=== PATIENT | male | born 1980 | race Caucasian/White ===

== ENCOUNTER 2021-08-18 13:46 | Outpatient (REF) | payer MEDICARE, MEDICAID, SELFPAY | END 2021-08-18 13:47 | disposition home or self-care (01) | LOC: HO.LAB 13:46 | PROVIDERS: PCP Physician Assistant Medical; Visit Provider Psychiatry & Neurology Neurology | DX: G71.00 Muscular dystrophy, unspecified (principal) | CPT/HCPCS: 36415; 82550 ==

== ENCOUNTER → 2021-09-07 12:44 | Outpatient (REF) | payer MEDICARE, MEDICAID, SELFPAY ==
--- NOTE | 2021-09-07 12:50 | CA_ITS ---
Transthoracic Echocardiogram Patient (Last, First, Middle): Uri Raymond J Gender: Male Date of : 1980 Age: 40 Procedure Date: 09/07/2021 Procedure Type: Transthoracic Echocardiogram Location: OP Height: 172.72 cm Weight: 58.97 kg BSA: 1.70 m2 Heart Rate: 79 bpm BP: 138 / 80 mmHg Recycler: MEET Referring MD: Ricardo Ryan MD Shift Lab Technician: Chris Loredo MD Symptoms: MUSCULAR DYSTOPHY, UNSPECIFIED. Study Quality: Adequate ECG Rhythm: Sinus Conclusions: - 1. Normal LV systolic and diastolic function 2. Mild mitral regurgitation 3. No gross pericardial effusion Findings Left Ventricle Normal left ventricular size, thickness, and systolic function. The visually estimated ejection fraction is between 55-60%. Spectral Doppler is indicative of a normal filling pattern. Right Ventricle Normal right ventricular cavity size and systolic function. Atria Both atria are normal in size. Interatrial shunt cannot be excluded. Aortic Valve Normal aortic valve structure and function. There is no aortic valve stenosis. There is no aortic valve regurgitation. Mitral Valve Normal mitral valve structure and function. There is mild mitral valve regurgitation. There is no mitral valve stenosis. Pulmonic Valve The pulmonic valve was not well visualized. Tricuspid Valve Likely normal tricuspid valve structure and function. Tricuspid regurgitation envelope is inadequate for calculation of right ventricular systolic pressure. Great Vessels All visible segments of the aorta are normal in size. The pulmonary artery was not well visualized. Venous The inferior vena cava was not well visualized. Pericardium/Pleural There is no evidence of pericardial effusion. Prior Study Comparison No prior study available for comparison. Measurements 2D Linear Measurements IVSd: 0.90 0.6-0.9/0.6-1.0 cm LVIDd: 4.66 3.9-5.3/4.2-5.9 cm LVIDd Index: 2.74 2.4-3.2/2.2-3.1 cm/m2 LVIDs: 3.33 2.0-3.6 cm LVPWd: 0.85 0.7-1.1 cm LA Diam: 3.10 2.7-3.8/3.0-4.0 cm LAIDs Index: 1.82 1.5-2.3 cm/m2 LV Mass: 169.31 67-162/88-224 g LV Mass Index: 99.59 43-95/49-115 g/m2 LVOT Diam: 2.20 3.0+(-)1.3 cm 2D Systolic Function EF 4C: 47.70 >55% EF 2C: 53.00 >55% Mitral Valve MV Pk E: 0.60 MV PK A: 0.44 MV Decel Time: 163.00 E/A: 1.40 E'Lateral: 11.20 E'Medial: 5.77 E/E' Med: 10.30 E/E' Lat: 5.30 PHT: 48.00 MVA PHT: 4.58 Decel Whitley: 3.65 Aortic Valve AoV Pk Melvin: 0.92 AoV Mn Melvin: 0.73 AoV VTI: 0.16 AoV Pk Grad: 3.00 Aov Mn Grad: 2.00 JULIO CESAR Cont.VTI: 2.87 LVOT LVOT Pk Melvin: 0.67 LVOT Mn Melvin: 0.46 LVOT VTI: 0.12 LVOT Pk Grad: 2.00 LVOT Mn Grad: 1.00 LVOT Diam: 2.20 LVOT Area: 3.80 Diastolic Function MV Pk E: 0.60 MV Pk A: 0.44 E/A: 1.40 E'Medial: 5.77 E/E' Med: 10.30 E' Laterial: 11.20 E/E' Lat: 5.30 Right Ventricle TAPSE (mm): 20.70 TVS' Melvin: 11.30 Great Vessels Aorta Sinus of Valsalva: 3.20 2.0-3.5 cm Ao Asc: 3.00 2.1-3.4 cm Pulmonary Valve PV Pk Melvin: 0.80 Peak PV Grad: 3.00 Updated in Other Vendor System with Status of Final Chris Loredo MD electronically signed on 09/07/2021 3:30:25 PM with status of Final
== END ==
LOC: HO.CARD 12:44
PROVIDERS: Visit Provider Internal Medicine
DX: Z13.89 Encounter for screening for other disorder (principal)
CPT/HCPCS: 93306